=== PATIENT | female | born 1960 | race African-American/Black ===

== ENCOUNTER 2021-02-13 11:29 | Emergency (ER) | payer BC, MEDICAID ==
[~2021-02-13] VITALS: Ht 160 cm; Wt 74.0 kg
[2021-02-13 12:38] LABS: CLARITY URINE CLEAR (CLEAR); COLOR URINE YELLOW (YELLOW); KETONES URINE NEGATIVE (NEGATIVE); LEUKOCYTE ESTERASE URINE 1+ (NEGATIVE); NITRITE URINE NEGATIVE (NEGATIVE); OCCULT BLOOD URINE NEGATIVE (NEGATIVE); PH URINE 6.5 (4.5-8.0); PROTEIN URINE NEGATIVE (NEGATIVE); SPECIFIC GRAVITY URINE 1.021 (1.005-1.030); UROBILINOGEN URINE 0.2 E.U./dL (0.2-1.0)
[2021-02-13] MEDS ORDERED: ONDANSETRON 4MG ODT PO ONE ×2 (12:45→18:15)
[2021-02-13] MEDS ORDERED: HYDROCODONE/ACETAMINOPHEN 5/325MG TABLET PO ONE ×2 (12:45→18:15)
[2021-02-13 13:00] LABS: BASOPHILS % 0.3 % (0.0-2.0); EOSINOPHILS % 1.7 % (0.0-5.0); HEMATOCRIT. 43.5 % (36.0-48.0); LYMPHOCYTES % 42.6 % (20.0-50.0); MEAN CORPUSCULAR HEMOGLOBIN 31.3 pg (28.0-32.0); MEAN CORPUSCULAR VOLUME 90.8 fL (81.0-99.0); MEAN PLATELET VOLUME 7.9 fl (7.4-10.4); MONOCYTES % 6.1 % (2.0-8.0); NEUTROPHILS % 49.3 % (40.0-76.0); PLATELET 230 x1000/uL (130-400); RED BLOOD CELL COUNT 4.79 mill/uL (4.2-5.4); RED CELL DISTRIBUTION WIDTH 14.2 % (11.6-14.6)
[2021-02-13 13:02] LABS: CHLORIDE 106 mEq/L (98-107)
[2021-02-13] MEDS: KETOROLAC 30MG/ML VIAL IM ONE ×2 (13:08→14:22)
[2021-02-13] MEDS ORDERED: NAPR-1176 MT (17:43)
[2021-02-13] MEDS ORDERED: NITR-87 MT (17:46)
[2021-02-13 18:28] VITALS: BP 140/79
== END 2021-02-13 18:47 | disposition home or self-care (01) ==
LOC: ER 11:29
DX: M54.5 Low back pain (principal); M48.02 Spinal stenosis, cervical region; R10.9 Unspecified abdominal pain; R82.71 Bacteriuria; Z88.6 Allergy status to analgesic agent; Z88.5 Allergy status to narcotic agent; Z98.890 Other specified postprocedural states; Z90.49 Acquired absence of other specified parts of digestive tract; Z90.710 Acquired absence of both cervix and uterus
CPT/HCPCS: 36415; 71045; 72141; 72148; 74176; 80053; 81003; 83690; 85025; 96372; 99285; J1885; Q0162